=== PATIENT | male | born 1990 | race Two or more races ===

== ENCOUNTER 2020-06-25 08:25 | Emergency (ER) | payer SELFPAY ==
[~2020-06-25] VITALS: Ht 165.1 cm; Wt 77.1 kg
[2020-06-25 08:38] VITALS: BP 146/80
[2020-06-25] MEDS ORDERED: KETOROLAC TROMETH 60MG/2ML VIAL IM ONE (09:15)
== END 2020-06-25 10:37 | disposition home or self-care (01) ==
LOC: ER 08:25
DX: M54.6 Pain in thoracic spine (principal); G89.29 Other chronic pain; F17.210 Nicotine dependence, cigarettes, uncomplicated
CPT/HCPCS: 72070; 81002; 96372; 99283; J1885